=== PATIENT | male | born 1970 | race Two or more races ===

== ENCOUNTER 2019-01-07 15:31 | Emergency (ER) | payer OTHER ==
[~2019-01-07] VITALS: Ht 175.3 cm; Wt 77.1 kg
--- NOTE | 2019-01-07 15:48 | NUR ---
ED Nurse Note: pt walked in to ER c/o anxiousness and high blood pressure and heart rate which he checked at [facility]. pt aao x4 and ambulatory. skin clean and intact. calm and cooperative but mild anxiousness noted while he was explaining about his symptoms. pt is in gown and on applications developer.
[2019-01-07 15:50] VITALS: BP 174/99
--- NOTE | 2019-01-07 15:54 | NUR ---
ED Nurse Note: x-ray at bedside.
--- NOTE | 2019-01-07 16:18 | Emergency Room Report ---
History of Present Illness General Chief Complaint: General Complaint Source: Patient Present Illness HPI 48-year-old male presenting with applications. He said he woke up this morning not feeling well. He went to [employer], checked his heart rate and blood pressure , noted that it was normal. He went to yoga he started to still not feel very well so he went again to check his blood pressure and heart rate and said that his heart rate was high and his blood pressure was high. Denies any current chest pains. No shortness of breath. No history of DVT or PE. No recent surgeries or immobilizations or recent travel. He denies any meth use. Says that he has 1 glass of wine a day he also said that he has a history of anxiety , so he took a Klonopin prior to coming here Allergies: Coded Allergies: No Known Allergies (Unverified , 01/07/19) Patient History Past Medical History: see triage record, HTN Past Surgical History: none Pertinent Family History: none Reviewed Nursing Documentation: PMH: Agreed; PSxH: Agreed Nursing Documentation-PMH Past Medical History: No History, Except For Hx Hypertension: Yes History Of Psychiatric Problem: Yes - anxiety Review of Systems All Other Systems: negative except mentioned in HPI Physical Exam Vital Signs Date Time Temp Pulse Resp B/P (MAP) Pulse Ox O2 Delivery O2 Flow Rate FiO2 01/07/19 15:39 98.4 134 20 174/98 (123) 99 Room Air Sp02 EP Interpretation: reviewed, normal General Appearance: alert, GCS 15, non-toxic, mild distress Head: normocephalic, atraumatic Eyes: bilateral eye normal inspection, bilateral eye PERRL, bilateral eye EOMI ENT: normal ENT inspection, normal pharynx, normal voice, moist mucus membranes Neck: normal inspection, full range of motion, supple Respiratory: normal inspection, lungs clear, normal breath sounds, no respiratory distress, no retraction, no wheezing, speaking full sentences, chest symmetrical Cardiovascular #1: tachycardia Cardiovascular #2: 2+ radial (R), 2+ radial (L) Gastrointestinal: normal inspection, non tender, soft, non-distended, no guarding Genitourinary: no CVA tenderness Musculoskeletal: normal inspection, back normal, normal range of motion, non- tender Neurologic: normal inspection, alert, oriented x3, responsive, motor strength/ tone normal, sensory intact, normal gait, speech normal Psychiatric: normal inspection, judgement/insight normal, memory normal Procedures Critical Care Time Critical Care Time 40 minutes of CC time Critical care time necessary in order to assess and manage the high probability of life threatening deterioration to CARDIOVASC system, required frequent reassessment. Excludes all billable procedures. Medical Decision Making Diagnostic Impression: Primary Impression: Palpitations Additional Impression: Dehydration ER Course 48-year-old male presenting with palpitations DDX: ACS, arrhythmia, dehydration, pneumonia. pneumothorax vs. gastritis/GERD Plan: Labs, EKG, CXR ER course: Patient remains well appearing in ED. tachycardia decreased with IVF - 80-90 Upon further history, patient says that he actually took a hot yoga class today , it was 98 degrees. Seems like this could have been related to dehydration. He never complained of any chest pain. Nevertheless he is feeling fine ready for discharge home Disposition:. DISCHARGED TO home Strict precautions discussed with patient on when to emergently return to the ED : this includes worsening/severe chest pain, palpitations, shortness of breath, syncopal episodes, fever or chills, which may indicate severe illness. Patient verbalized understanding. Patient instructed to follow up with their PMD within the next 2 days. Patient agrees with plan. Please note that this Emergency Department Report was dictated using [employer] technology software, occasionally this can lead to erroneous entry secondary to interpretation by the dictation equipment. EKG Diagnostic Results EP Interpretation: Yes Rate: tachy Rhythm: NSR ST Segments: No acute changes ASA given to patient: no Rhythm Strip EP Interpretation: Yes Rate:110 Rhythm: NSR, no PVCs, no ectopy Chest X-ray CXR: Ordered: Yes 1 view Indication: Palpitations EP interpretation: Yes Interpretation: No consolidation, no effusion, no PTX, no acute cardiopulmonary disease Impression: No acute disease Electronically signed by Yoni Morris MD Laboratory Tests Test 01/07/19 16:00 White Blood Count 9.0 K/UL (4.8-10.8) Red Blood Count 4.76 M/UL (4.70-6.10) Hemoglobin 14.8 G/DL (14.2-18.0) Hematocrit 42.9 % (42.0-52.0) Mean Corpuscular Volume 90 FL (80-99) Mean Corpuscular Hemoglobin 31.2 PG (27.0-31.0) H Mean Corpuscular Hemoglobin Concent 34.6 G/DL (32.0-36.0) Red Cell Distribution Width 11.2 % (11.6-14.8) L Platelet Count 265 K/UL (150-450) Mean Platelet Volume 6.5 FL (6.5-10.1) Neutrophils (%) (Auto) 68.9 % (45.0-75.0) Lymphocytes (%) (Auto) 23.0 % (20.0-45.0) Monocytes (%) (Auto) 5.9 % (1.0-10.0) Eosinophils (%) (Auto) 0.2 % (0.0-3.0) Basophils (%) (Auto) 1.9 % (0.0-2.0) Prothrombin Time 9.9 SEC (9.30-11.50) Prothrombin Time INR 0.9 (0.9-1.1) PTT 23 SEC (23-33) D-Dimer 0.21 mg/L FEU (0.00-0.49) Sodium Level 134 MMOL/L (136-145) L Potassium Level 4.1 MMOL/L (3.5-5.1) Chloride Level 98 MMOL/L (98-107) Carbon Dioxide Level 27 MMOL/L (21-32) Anion Gap 9 mmol/L (5-15) Blood Urea Nitrogen 9 mg/dL (7-18) Creatinine 0.9 MG/DL (0.55-1.30) Estimate Glomerular Filtration Rate > 60 mL/min (>60) Glucose Level 139 MG/DL (74-106) H Calcium Level 9.7 MG/DL (8.5-10.1) Total Bilirubin 1.1 MG/DL (0.2-1.0) H Direct Bilirubin 0.1 MG/DL (0.0-0.3) Aspartate Amino Transferase (AST) 47 U/L (15-37) H Alanine Aminotransferase (ALT) 48 U/L (12-78) Alkaline Phosphatase 64 U/L (46-116) Troponin I 0.000 ng/mL (0.000-0.056) Total Protein 8.1 G/DL (6.4-8.2) Albumin 4.1 G/DL (3.4-5.0) Globulin 4.0 g/dL Albumin/Globulin Ratio 1.0 (1.0-2.7) Last Vital Signs Date Time Temp Pulse Resp B/P (MAP) Pulse Ox O2 Delivery O2 Flow Rate FiO2 01/07/19 15:51 134 14 Room Air 01/07/19 15:50 97.7 174/99 100 Disposition: HOME, SELF-CARE Condition: Stable Yoni Morris M.D. Jan 07, 2019 16:18
[2019-01-07 16:25] LABS: BASOPHILS % (AUTO) 1.9 % (0.0-2.0); EOSINOPHILS % (AUTO) 0.2 % (0.0-3.0); HEMATOCRIT 42.9 % (42.0-52.0); HEMOGLOBIN 14.8 G/DL (14.2-18.0); MEAN CORPUSCULAR VOLUME 90 FL (80-99); MONOCYTES % (AUTO) 5.9 % (1.0-10.0); NEUTROPHILS % (AUTO) 68.9 % (45.0-75.0); PLATELET COUNT 265 K/UL (150-450); RED BLOOD COUNT 4.76 M/UL (4.70-6.10); RED CELL DISTRIBUTION WIDTH 11.2 % (11.6-14.8)
[2019-01-07 16:42] LABS: ANION GAP 9 mmol/L (5-15); BLOOD UREA NITROGEN 9 mg/dL (7-18); CALCIUM 9.7 MG/DL (8.5-10.1); CARBON DIOXIDE 27 MMOL/L (21-32); CHLORIDE 98 MMOL/L (98-107); CREATININE 0.9 MG/DL (0.55-1.30); POTASSIUM 4.1 MMOL/L (3.5-5.1); SODIUM 134 MMOL/L (136-145)
--- NOTE | 2019-01-07 16:44 | Diagnostic Imaging Report ---
Indication: Chest pain. Technique: Single AP view of the chest. Comparison: None. Findings: The cardiomediastinal silhouette is within normal limits. There is no focal consolidation, pneumothorax or pleural effusion. Osseous structures demonstrate no acute abnormality. IMPRESSION: No radiographic evidence of acute cardiopulmonary disease.
[2019-01-07 16:54] LABS: ALANINE AMINOTRANSFERASE 48 U/L (12-78); ALBUMIN 4.1 G/DL (3.4-5.0); ALKALINE PHOSPHATASE 64 U/L (46-116); ASPARTATE AMINO TRANSFERASE 47 U/L (15-37); BILIRUBIN,TOTAL 1.1 MG/DL (0.2-1.0)
[2019-01-07 16:55] LABS: BILIRUBIN,DIRECT 0.1 MG/DL (0.0-0.3)
--- NOTE | 2019-01-07 17:30 | NUR ---
ED Nurse Note: ERMD at bedside discussing about lab results with pt.
[2019-01-07 17:36] LABS: INR 0.9 (0.9-1.1)
[2019-01-07 18:15] VITALS: BP 124/78
--- NOTE | 2019-01-07 18:15 | NUR ---
ER DISCHARGE NOTE: Patient is cleared to be discharged per ERMD after iv fluid completed, pt is aox4, on room air, with stable vital signs. pt was given dc instructions with lab results printed out, pt was able to verbalize understanding, pt id band and iv site removed without complications. pt is able to ambulate with steady gait. pt took all belongings.
== END 2019-01-07 18:15 | disposition home or self-care (01) ==
LOC: EMR 16:10
DX: R00.2 Palpitations (principal); E86.0 Dehydration; I10 Essential (primary) hypertension; F41.9 Anxiety disorder, unspecified; R00.0 Tachycardia, unspecified
CPT/HCPCS: 36415; 71045; 80053; 82248; 84484; 85025; 85379; 85610; 85730; 93005; 96360; 99291

== ENCOUNTER 2019-02-03 14:59 | Emergency (ER) | payer OTHER ==
[~2019-02-03] VITALS: Ht 175.3 cm; Wt 78.5 kg
[2019-02-03] MEDS ORDERED: KLONOPIN0.5 MG ORAL (15:04)
[2019-02-03] MEDS ORDERED: METOPROLOL SUCC50 MG ORAL (15:04)
[2019-02-03] MEDS ORDERED: LOSARTAN POTASS50 MG ORAL (15:04)
--- NOTE | 2019-02-03 15:18 | NUR ---
ED Nurse Note: PT WALKED IN TO ER TODAY FROM HOME. AOX4. PT C/O CHEST DISCOMFORT X THIS AFTERNOON WHILE AT WORK. PT STATES HE WENT TO CHECK HIS BP AT A LOCAL [facility] WHICH READ 180/90. PT CAME INTO ER AND STARTED HAVING CHEST PALPITATIONS. PT STATES, "I THINK THAT IT'S ANXIETY RELATED. AT BEDSIDE, PT DENIES CHEST PAIN OR SOB. BP 160/93 - DR CALLE AWARE.
[2019-02-03 15:20] VITALS: BP 160/93
--- NOTE | 2019-02-03 15:42 | Emergency Room Report ---
History of Present Illness General Chief Complaint: Hypertension Source: Patient Present Illness HPI Patient is a 48-year-old female who presented after increased blood pressure as well as generalized body aches. Patient checked his blood pressure at a grocery store and was noted to have elevated blood pressure. He reports having some increased generalized discomfort as well as palpitations. He had reportedly been having some increase in alcohol intake last night. He reports having approximate 3-4 alcoholic drinks. He denies any severe headache or severe chest discomfort. Prior history of hypertension for which she is currently taking metoprolol. He denies any prior cardiac conditions.Patient denies any current shortness of breath. He has not been vomiting or having any diarrhea. Allergies: Coded Allergies: No Known Allergies (Unverified , 01/07/19) Patient History Past Medical History: see triage record Reviewed Nursing Documentation: PMH: Agreed; PSxH: Agreed Nursing Documentation-PMH Past Medical History: No History, Except For Hx Cardiac Problems: No Hx Hypertension: Yes Hx Pacemaker: No Hx Asthma: No Hx COPD: No Hx Diabetes: No Hx Cancer: No Hx Gastrointestinal Problems: No Hx Dialysis: No History Of Psychiatric Problem: Yes - Anxiety Hx Neurological Problems: No Hx Cerebrovascular Accident: No Hx Seizures: No Review of Systems All Other Systems: negative except mentioned in HPI Physical Exam Vital Signs Date Time Temp Pulse Resp B/P (MAP) Pulse Ox O2 Delivery O2 Flow Rate FiO2 02/03/19 15:04 97.9 96 16 153/93 (113) 99 Room Air Sp02 EP Interpretation: reviewed, normal General Appearance: normal inspection, well appearing, no apparent distress, alert, GCS 15 Head: atraumatic ENT: normal ENT inspection, hearing grossly normal, normal voice Neck: normal inspection, full range of motion, supple, no bony tend Respiratory: normal inspection, lungs clear, normal breath sounds, no respiratory distress, no retraction, no wheezing Cardiovascular #1: regular rate, rhythm, no edema Gastrointestinal: normal inspection, normal bowel sounds, non tender, soft, no guarding, no hernia Genitourinary: no CVA tenderness Musculoskeletal: normal inspection, back normal, normal range of motion Neurologic: normal inspection, alert, oriented x3, responsive, telecommunications professional III-XII nml as tested, speech normal Psychiatric: normal inspection, judgement/insight normal, mood/affect normal Medical Decision Making Diagnostic Impression: Primary Impression: Hypertension ER Course Patient presented for patient presented for palpitations. The differential diagnosis included was not limited to arrhythmia, thyroid storm, sepsis, anemia , myocardial infarction, alcohol withdrawal, stimulant abuse, caffeine overdose among others. Because of complexity of patient's case laboratory tests and imaging studies were ordered. EKG interpreted by me showed normal sinus rhythm with a rate of [address] or T wave changes. QTc is 431. Patient was given IV fluids as well as IV magnesium with improvement in his blood pressure. Chest x-ray one view interpreted by me showed normal cardiac size with a normal mediastinum without any infiltrate. Patient appears to be stable for outpatient evaluation. Patient said he felt better. Patient will follow-up with his primary care physician for further outpatient cardiac testing. Labs Test 02/03/19 15:20 White Blood Count 7.9 K/UL (4.8-10.8) Red Blood Count 4.59 M/UL (4.70-6.10) Hemoglobin 14.3 G/DL (14.2-18.0) Hematocrit 39.8 % (42.0-52.0) Mean Corpuscular Volume 87 FL (80-99) Mean Corpuscular Hemoglobin 31.2 PG (27.0-31.0) Mean Corpuscular Hemoglobin Concent 35.9 G/DL (32.0-36.0) Red Cell Distribution Width 10.8 % (11.6-14.8) Platelet Count 256 K/UL (150-450) Mean Platelet Volume 6.0 FL (6.5-10.1) Neutrophils (%) (Auto) 62.9 % (45.0-75.0) Lymphocytes (%) (Auto) 25.1 % (20.0-45.0) Monocytes (%) (Auto) 9.2 % (1.0-10.0) Eosinophils (%) (Auto) 0.7 % (0.0-3.0) Basophils (%) (Auto) 2.2 % (0.0-2.0) Sodium Level 126 MMOL/L (136-145) Potassium Level 3.5 MMOL/L (3.5-5.1) Chloride Level 92 MMOL/L (98-107) Carbon Dioxide Level 23 MMOL/L (21-32) Anion Gap 11 mmol/L (5-15) Blood Urea Nitrogen 6 mg/dL (7-18) Creatinine 0.8 MG/DL (0.55-1.30) Estimat Glomerular Filtration Rate > 60 mL/min (>60) Glucose Level 103 MG/DL (74-106) Calcium Level 8.6 MG/DL (8.5-10.1) Total Bilirubin 0.8 MG/DL (0.2-1.0) Aspartate Amino Transf (AST/SGOT) 25 U/L (15-37) Alanine Aminotransferase (ALT/SGPT) 24 U/L (12-78) Alkaline Phosphatase 66 U/L (46-116) Troponin I 0.000 ng/mL (0.000-0.056) Total Protein 7.5 G/DL (6.4-8.2) Albumin 3.9 G/DL (3.4-5.0) Globulin 3.6 g/dL Albumin/Globulin Ratio 1.1 (1.0-2.7) Lipase 137 U/L (73-393) Thyroid Stimulating Hormone (TSH) 1.255 uiU/mL (0.358-3.740) EKG Diagnostic Results Rate: normal Rhythm: NSR ST Segments: no acute changes Last Vital Signs Date Time Temp Pulse Resp B/P (MAP) Pulse Ox O2 Delivery O2 Flow Rate FiO2 02/03/19 15:20 98 12 Room Air 02/03/19 15:20 98.1 160/93 99 Status: improved Disposition: HOME, SELF-CARE Condition: Stable Bridger Sales MD Feb 03, 2019 15:42
[2019-02-03 16:03] LABS: BASOPHILS % (AUTO) 2.2 % (0.0-2.0); EOSINOPHILS % (AUTO) 0.7 % (0.0-3.0); HEMATOCRIT 39.8 % (42.0-52.0); HEMOGLOBIN 14.3 G/DL (14.2-18.0); LYMPHOCYTES % (AUTO) 25.1 % (20.0-45.0); MEAN CORPUSCULAR VOLUME 87 FL (80-99); MONOCYTES % (AUTO) 9.2 % (1.0-10.0); NEUTROPHILS % (AUTO) 62.9 % (45.0-75.0); PLATELET COUNT 256 K/UL (150-450); RED BLOOD COUNT 4.59 M/UL (4.70-6.10); RED CELL DISTRIBUTION WIDTH 10.8 % (11.6-14.8); WHITE BLOOD COUNT 7.9 K/UL (4.8-10.8)
[2019-02-03 16:06] LABS: ANION GAP 11 mmol/L (5-15); BLOOD UREA NITROGEN 6 mg/dL (7-18); CALCIUM 8.6 MG/DL (8.5-10.1); CARBON DIOXIDE 23 MMOL/L (21-32); CHLORIDE 92 MMOL/L (98-107); CREATININE 0.8 MG/DL (0.55-1.30); POTASSIUM 3.5 MMOL/L (3.5-5.1); SODIUM 126 MMOL/L (136-145)
[2019-02-03 16:18] LABS: ALANINE AMINOTRANSFERASE 24 U/L (12-78); ALBUMIN 3.9 G/DL (3.4-5.0); ALBUMIN/GLOBULIN RATIO 1.1 (1.0-2.7); ALKALINE PHOSPHATASE 66 U/L (46-116); ASPARTATE AMINO TRANSFERASE 25 U/L (15-37); BILIRUBIN,TOTAL 0.8 MG/DL (0.2-1.0)
--- NOTE | 2019-02-03 16:51 | NUR ---
ED Nurse Note: XRAY AT BEDSIDE.
--- NOTE | 2019-02-03 17:04 | Diagnostic Imaging Report ---
Indication: Shortness of breath Technique: One view of the chest Comparison: 01/07/2019 Findings: Lungs and pleural spaces are clear. Heart size is normal . No significant interim change Impression: No acute process
[2019-02-03 17:42] LABS: ANION GAP 10 mmol/L (5-15); BLOOD UREA NITROGEN 7 mg/dL (7-18); CALCIUM 8.5 MG/DL (8.5-10.1); CARBON DIOXIDE 23 MMOL/L (21-32); CHLORIDE 95 MMOL/L (98-107); CREATININE 0.7 MG/DL (0.55-1.30); SODIUM 128 MMOL/L (136-145)
[2019-02-03 18:04] VITALS: BP 143/87
--- NOTE | 2019-02-03 18:04 | NUR ---
ED Nurse Note: PT LAYING PEACEFULLY IN BED IN NAD. AOX4. DISCHARGE PAPERWORK EXPLAINED TO PT. PT VERBALIZES UNDERSTANDING AND ALL QUESTIONS ANSWERED. DISCHARGE PAPERWORK GIVEN TO PT, IV AND ID WRISTBAND REMOVED. PT WALKED OUT OF ER WITH STEADY GAIT AND ALL BELONGINGS. .
--- NOTE | 2019-02-04 17:19 | Cardiology Report ---
APPROVED REPORT EKG Measurement Heart [id number] Normal sinus rhythm Normal ECG
== END 2019-02-03 18:05 | disposition home or self-care (01) ==
LOC: EMR 15:30
DX: I10 Essential (primary) hypertension (principal); F41.9 Anxiety disorder, unspecified; E87.1 Hypo-osmolality and hyponatremia
CPT/HCPCS: 36415; 71045; 80048; 80053; 83690; 84300; 84443; 84484; 85025; 93005; 96365; 99284; J8499